=== PATIENT | female | born 1960 | race Caucasian/White ===

== ENCOUNTER 2017-04-04 10:25 | Emergency (ER) | payer BC, OTHER ==
[~2017-04-04] VITALS: Ht 167.6 cm; Wt 93.0 kg
[2017-04-04 10:28] VITALS: BP 145/82; PULSE 80; RESP 16; TEMP 99.3; O2SAT 98
--- NOTE | 2017-04-04 11:01 | RADRPT ---
EXAM DATE/TIME: 04/04/2017 10:42 [facility] COMPARISON: No previous studies available for comparison. INDICATIONS : Right distal forearm pain post fall today. MEDICAL HISTORY : None. SURGICAL HISTORY : None. ENCOUNTER: Initial ACUITY: 1 day PAIN SCORE: 8/10 LOCATION: Right distal forearm FINDINGS: An acute distal radial fracture. Please see the wrist x-ray described separately. The remaining aspec ts of the forearm are intact. CONCLUSION: Fracture of the wrist. See that report separately. Remaining forearm is intact. Jerzy Chappell Jr., MD on April 04, 2017 at 10:58 Board Certified Radiologist. This report was verified electronically.
--- NOTE | 2017-04-04 11:02 | RADRPT ---
EXAM DATE/TIME: 04/04/2017 10:42 [facility] COMPARISON: No previous studies available for comparison. INDICATIONS : Right wrist pain post fall MEDICAL HISTORY : None. SURGICAL HISTORY : None. ENCOUNTER: Initial ACUITY: 1 day PAIN SCORE: 7/10 LOCATION: Right wrist FINDINGS: 3 views of the right wrist reveal an acute impaction spelled fracture involving the distal radial met aphysis. There is 20 of angulation with apex towards the palmar surface. No intra-articular extensio n observed. A tiny avulsion fracture involving the ulnar styloid. Soft tissue swelling noted. Remaini ng carpus is intact. CONCLUSION: Acute distal radial fracture and tiny ulnar styloid fracture. Jerzy Chappell Jr., MD on April 04, 2017 at 10:59 Board Certified Radiologist. This report was verified electronically.
--- NOTE | 2017-04-04 11:10 | PD ---
HPI Chief Complaint: Musculoskeletal Complaint Time Seen by Provider: 10:56 Travel History International Travel<30 days: No Contact w/Intl Traveler<30days: No Traveled to known affect area: No History of Present Illness HPI 56-year-old female who tripped [place] and landed on her outstretched right hand causing sudden onset constant throbbing pain worse with palpation and range of motion. Duration about an hour. No numbness tingling or weakness. No additional complaint. PFSH Past Medical History ?: Not Social History Tobacco Use: No Allergies-Medications (Allergen,Severity, Reaction): Coded Allergies: No Known Allergies (Verified Allergy, Unknown, 04/04/17) Review of Systems Eyes: No: Diploplia HENT: No: Rhinitis Cardiovascular: No: Diaphoresis Gastrointestinal: No: Abdominal Pain Physical Exam Narrative GENERAL: 56-year-old female pleasant mild distress Vital Signs Date Time Temp Pulse Resp B/P (MAP) Pulse Ox O2 Delivery O2 Flow Rate FiO2 04/04/17 10:28 99.3 80 16 145/82 (103) 98 SKIN: Warm and dry. HEAD: Normocephalic. EYES: No scleral icterus. No injection or drainage. NECK: Supple, trachea midline. No JVD or lymphadenopathy. CARDIOVASCULAR: Regular rate and rhythm without murmurs, gallops, or rubs. RESPIRATORY: Breath sounds equal bilaterally. No accessory muscle use. GASTROINTESTINAL: Abdomen soft, non-tender, nondistended. MUSCULOSKELETAL: No cyanosis, or edema. Minimal swelling overlying the dorsal aspect of the DRUJ towards the radial side. There is 2+ radial artery pulses bilaterally and normal range of motion at the right fingers and hand with normal sensation throughout. BACK: Nontender without obvious deformity. No CVA tenderness. Data Data Last Documented VS Vital Signs Date Time Temp Pulse Resp B/P (MAP) Pulse Ox O2 Delivery O2 Flow Rate FiO2 04/04/17 10:28 99.3 80 16 145/82 (103) 98 Orders Orders Forearm (2vws) (04/04/17 ) Wrist, Complete ([id number]) (04/04/17 ) Support Splint (04/04/17 11:05) Ed Discharge Order (04/04/17 11:16) MDM Medical Decision Making Medical Screen Exam Complete: Yes Emergency Medical Condition: Yes Medical Record Reviewed: Yes Differential Diagnosis Fracture of radius, scaphoid fracture, dislocation Narrative Course Distal radius fracture noted. Sugar tong splint applied. Neuro vasculature is intact. The alignment is nearly anatomic in a reduction attempt here is considered to be low yield. Follow-up with either Dr. Bansal or Dr. Paredes. The third option was Dr. Mendez has been provided. Return precautions discussed. The patient has meloxicam at home she can use for pain control and refused more pain medication. Diagnosis Primary Impression: Distal radius fracture, right Qualified Codes: S52.501A - Unspecified fracture of the lower end of right radius, initial encounter for closed fracture Referrals: Flaquito Mendez III, MD,Guillermo Bansal,Jeannine Youssef MD Med/Other Pt SpecificInfo: No Change to Meds Disposition: 01 DISCHARGE HOME Condition: Stable Rudi Enamorado MD Apr 04, 2017 11:10
[2017-04-04] MEDS ORDERED: OMEP20TA93 PO (11:21)
[2017-04-04] MEDS ORDERED: [UNRECOGNIZED DRUG - CODE] (11:21)
[2017-04-04] MEDS ORDERED: FLUT1INH INH (11:21)
[2017-04-04] MEDS ORDERED: FLUT1SPR5 EACH NARE (11:21)
== END 2017-04-04 12:35 | disposition home or self-care (01) ==
LOC: PHEFT 10:25
DX: S52.501A Unspecified fracture of the lower end of right radius, initial encounter for closed fracture (principal); W10.8XXA Fall (on) (from) other stairs and steps, initial encounter; Y93.01 Activity, walking, marching and hiking; Y92.89 Other specified places as the place of occurrence of the external cause
CPT/HCPCS: 29125; 73090; 73110